=== PATIENT | female | born 1965 | race African-American/Black ===

== ENCOUNTER 2019-07-16 05:18 | Inpatient (IN) | payer MEDICARE ==
[~2019-07-16] VITALS: Ht 167.6 cm; Wt 64.9 kg
[2019-07-16] MEDS ORDERED: CLONIDINE HCL 0.1 MG TABLET ONE (05:56)
[2019-07-16] MEDS ORDERED: ACETAMINOPHEN ES 500 MG TABLET ONE (05:56)
[2019-07-16] MEDS ORDERED: NITROGLYCERIN 0.4 MG/TAB BOTTLE ONE ×2 (05:57→08:59)
[2019-07-16] MEDS ORDERED: NITROGLYCERIN PACKET 1 GM PACKET ONE (05:57)
[2019-07-16] MEDS ORDERED: NITROGLYCERIN PACKET 1 GM PACKET TOP ONE (06:00)
[2019-07-16] MEDS ORDERED: CLONIDINE HCL 0.1 MG TABLET PO ONE (06:00)
[2019-07-16] MEDS ORDERED: ACETAMINOPHEN ES 500 MG TABLET PO ONE (06:00)
[2019-07-16] MEDS ORDERED: NITROGLYCERIN 4.9 GM SPRAY SL ONE (06:00)
[2019-07-16 06:12] LABS: BASOPHILS % (AUTO) 0.5 % (0.0-2.0); HEMATOCRIT 29 % (33-45); HEMOGLOBIN 9.7 g/dL (11.5-14.8); LYMPHOCYTES # (AUTO) 0.7 /CMM (0.8-4.8); LYMPHOCYTES % (AUTO) 9.2 % (20.0-44.0); MEAN CORPUSCULAR HGB CONC 33 g/dl (31.0-36.0); MEAN CORPUSCULAR VOLUME 92 fL (82-100); MONOCYTES # (AUTO) 0.6 /CMM (0.1-1.30); MONOCYTES % (AUTO) 7.2 % (2.0-12.0); NEUTROPHILS # (AUTO) 6.5 /CMM (1.8-8.9); NEUTROPHILS % (AUTO) 82.1 % (43.0-81.0); PLATELET COUNT (AUTO) 229 /CMM (150-450); RED BLOOD CELL COUNT(AUTO) 3.18 MIL/uL (4.0-5.2)
[2019-07-16 06:24] LABS: CALCIUM, SERUM 9.8 mg/dL (8.5-10.1); POTASSIUM 4.6 mmol/L (3.5-5.1)
[2019-07-16 06:26] LABS: MAGNESIUM 1.9 mg/dL (1.8-2.4); PHOSPHORUS 2.1 mg/dL (2.5-4.9)
[2019-07-16] MEDS ORDERED: NITROGLYCERIN 0.4 MG/TAB BOTTLE SL ONE (06:30)
[2019-07-16] MEDS ORDERED: hydrALAZINE HCL IV 20 MG VIAL IV ONE (06:30)
[2019-07-16 06:33] LABS: CREATININE 10.9 mg/dL (0.6-1.3)
[2019-07-16] MEDS ORDERED: hydrALAZINE HCL IV 20 MG VIAL ONE (06:37)
[2019-07-16 06:40] LABS: BILIRUBIN,DIRECT 0.2 mg/dL (0.0-0.2); BILIRUBIN,TOTAL 0.6 mg/dL (0.2-1.0)
[2019-07-16 06:41] LABS: ALBUMIN 3.3 g/dL (3.4-5.0); TOTAL PROTEIN, SERUM 7.9 g/dL (6.4-8.2)
[2019-07-16] MEDS ORDERED: LORAZEPAM INJ 2 MG/ML VIAL IV ONE (07:00)
[2019-07-16] MEDS ORDERED: LORAZEPAM INJ 2 MG/ML VIAL ONE (07:01)
[2019-07-16] MEDS ORDERED: NITROGLYCERIN 0.4 MG/TAB BOTTLE SL PRN (08:30)
[2019-07-16] MEDS ORDERED: LOSARTAN POTASSIUM 25 MG TABLET ONE (08:59)
[2019-07-16] MEDS ORDERED: CARV6.252 PO (08:59)
[2019-07-16] MEDS ORDERED: LOSA100T31 PO (08:59)
[2019-07-16] MEDS ORDERED: ATOR80TA PO (08:59)
[2019-07-16] MEDS ORDERED: NIFE30TA91 PO (08:59)
[2019-07-16 09:00] VITALS: BP 131/106
[2019-07-16] MEDS ORDERED: LOSARTAN POTASSIUM 25 MG TABLET PO SCH (09:00)
[2019-07-16 09:27] LABS: IRON, SERUM 43 ug/dl (50-175); TOTAL IRON BINDING CAPACITY 236 ug/dl (250-450)
[2019-07-16] MEDS ORDERED: ATORVASTATIN 10 MG TABLET PO SCH (09:30)
[2019-07-16] MEDS ORDERED: ASPIRIN 81 MG TAB.CHEW PO SCH (09:30)
[2019-07-16 10:03] LABS: FERRITIN 1512 ng/mL (8-388)
[2019-07-16] MEDS ORDERED: IBUPROFEN 400 MG TABLET PO ONE (11:30)
[2019-07-16 12:00] VITALS: BP 131/106
[2019-07-16] MEDS ORDERED: K PHOS NEUTRAL 250 MG TABLET PO ONE (12:30)
[2019-07-16] MEDS ORDERED: CARVEDILOL 6.25 MG TABLET PO SCH ×2 (13:00→17:00)
[2019-07-16 14:00] VITALS: BP 160/128
[2019-07-16] MEDS ORDERED: diphenhydrAMINE HCL 50 MG/ML VIAL IV PRN (15:30)
[2019-07-16 16:00] VITALS: BP 160/123
[2019-07-16 20:21] VITALS: BP 144/94
[2019-07-17] MEDS ORDERED: LOSARTAN POTASSIUM 50 MG TABLET PO SCH (09:00)
[2019-07-17] MEDS ORDERED: NIFEdipine XL (30MG) 30 MG TAB PO SCH (09:00)
[2019-07-17] MEDS ORDERED: ATORVASTATIN 40 MG TABLET PO SCH (22:00)
== END 2019-07-16 22:00 | disposition home or self-care (01) | DRG 280 ==
LOC: ER 05:26 → TELE1 08:53
PROVIDERS: ADMIT Internal Medicine; ATTEND Internal Medicine
PROC: 5A1D70Z Performance of Urinary Filtration, Intermittent, Less than 6 Hours Per Day (ICD-10-PCS; principal; 2019-07-16)
DX: I13.2 Hypertensive heart and chronic kidney disease with heart failure and with stage 5 chronic kidney disease, or end stage renal disease (principal); I50.33 Acute on chronic diastolic (congestive) heart failure; I21.A1 Myocardial infarction type 2; N18.6 End stage renal disease; J96.01 Acute respiratory failure with hypoxia; Z87.891 Personal history of nicotine dependence; Z93.3 Colostomy status; Z99.2 Dependence on renal dialysis; I16.0 Hypertensive urgency; D63.8 Anemia in other chronic diseases classified elsewhere
CPT/HCPCS: 36415; 71045-TC; 80048-TC; 80074; 80076-TC; 82728-TC; 83540-TC; 83735-TC; 83880; 84100-TC; 84484-TC; 85025-TC; 85378-TC; 86704; 86706; 87081-TC; 87340; 93307-TC; G0378; J0360; J1200; J2060; J3490